=== PATIENT | female | born 1955 | race Hispanic/Latino ===

== ENCOUNTER 2017-12-08 21:33 | Emergency (ER) | payer SELFPAY ==
[~2017-12-08] VITALS: Ht 152.4 cm; Wt 77.6 kg
== END 2017-12-08 22:50 | disposition home or self-care (01) ==
LOC: FSED 21:33
DX: S40.022A Contusion of left upper arm, initial encounter (principal); W20.8XXA Other cause of strike by thrown, projected or falling object, initial encounter; Y92.008 Other place in unspecified non-institutional (private) residence as the place of occurrence of the external cause
CPT/HCPCS: 99283